=== PATIENT | male | born 1980 | race Two or more races ===

== ENCOUNTER 2016-09-01 08:23 | Emergency (ER) | payer OTHER ==
[2016-09-01] MEDS ORDERED: NO HOME MEDICATION XX (08:35)
[2016-09-01 09:06] LABS: CREATININE 0.94 mg/dl (0.60-1.30); eGFR VALUE FOR BLACK >90 mL/Min
[2016-09-01 09:16] LABS: URINE BILIRUBIN NEGATIVE (NEG); URINE BLOOD SMALL (NEG); URINE GLUCOSE (UA) NEGATIVE (NEG); URINE KETONE NEGATIVE (NEG); URINE LEUKOCYTE ESTERASE NEGATIVE (NEG); URINE NITRITE NEGATIVE (NEG); URINE PROTEIN MODERATE (NEG); URINE SPECIFIC GRAVITY 1.025 (1.003-1.030)
[2016-09-01 09:17] LABS: URINE APPEARANCE CLEAR; URINE COLOR YELLOW
[2016-09-01 09:26] LABS: URINE EPITHELIAL CELLS 0 /[HPF] (0-10); URINE RBC 0 /[HPF] (0-5); URINE WBC 0 /[HPF] (0-5)
[2016-09-01] MEDS ORDERED: PERCOCET 5-3251 EACH PO (11:00)
[2016-09-01] MEDS ORDERED: COMPAZINE10 MG PO (11:00)
[2016-12-11] MEDS ORDERED: CIPRO HC OTIC S10 M1 LEFT EAR (19:30)
== END 2016-09-01 11:09 ==
LOC: EDMED 08:23
PROVIDERS: Emergency Medicine
DX: N20.1 Calculus of ureter (principal); K76.9 Liver disease, unspecified; Q63.8 Other specified congenital malformations of kidney; Z87.442 Personal history of urinary calculi
CPT/HCPCS: J1885; J2270; J2405; J7030